=== PATIENT | male | born 1940 | race Caucasian/White ===

== ENCOUNTER 2025-04-10 10:22 | Outpatient (CLI) | payer OTHER ==
[~2025-04-10 10:22] MED LIST: Iopamidol 370 76% 100 ML VIAL ONE
== END 2025-04-10 10:23 | disposition home or self-care (01) ==
LOC: CSHCT 10:22
PROVIDERS: ATTEND Family Medicine
DX: R06.02 Shortness of breath (principal); I25.10 Atherosclerotic heart disease of native coronary artery without angina pectoris; I25.84 Coronary atherosclerosis due to calcified coronary lesion; J43.9 Emphysema, unspecified; R91.8 Other nonspecific abnormal finding of lung field
CPT/HCPCS: 71275